=== PATIENT | male | born 1955 | race Caucasian/White ===

== ENCOUNTER 2023-08-27 19:00 | Emergency (ER) | payer MEDICARE ==
[~2023-08-27] VITALS: Ht 180.3 cm; Wt 79.5 kg
[~2023-08-27 19:00] MED LIST: ATOR20TA66 PO; NO HOME MEDS PO
[2023-08-27 19:17] VITALS: TEMP 98.4
[2023-08-27] MEDS: morphine 4 MG/ML inj SYRINge IV ONE (20:05)
[2023-08-27] MEDS: ondansetron/PF 4mg/2ml inj IV ONE (20:11)
[2023-08-27] MEDS ORDERED: iohexol 300mg/ml 100ml inj. ONE (20:35)
[2023-08-27 20:43] LABS: BASOPHILS % (AUTO) 0.5 % (0-1); EOSINOPHILS # (AUTO) 0.1 X10'3 (0-0.9); EOSINOPHILS % (AUTO) 0.7 % (0-6); HEMATOCRIT 41.6 % (42.0-52.0); HEMOGLOBIN 14.2 g/dl (14.0-17.9); LYMPHOCYTES # (AUTO) 1.3 X10'3 (1.1-4.8); LYMPHOCYTES % (AUTO) 14.3 % (21-51); MEAN CORPUSCULAR HEMOGLOBIN 32.2 PG (27.0-31.0); MEAN CORPUSCULAR HGB CONC 34.2 g/dL (33.0-36.5); MEAN CORPUSCULAR VOLUME 94.2 FL (78-98); MEAN PLATELET VOLUME 8.3 FL (7.4-10.4); MONOCYTES # (AUTO) 0.4 X10'3 (0-0.9); MONOCYTES % (AUTO) 4.1 % (2-12); NEUTROPHILS # (AUTO) 7.3 X10'3 (1.8-7.7); NEUTROPHILS % (AUTO) 80.4 % (42-75); PLATELET COUNT 299 X10'3 (140-440); RED BLOOD COUNT 4.42 X10'6 (4.70-6.10); RED CELL DISTRIBUTION WIDTH 13.4 % (11.5-14.5); WHITE BLOOD COUNT 9.1 X10'3 (4.5-11.0)
[2023-08-27 20:58] LABS: ANION GAP 17 (8-16); BLOOD UREA NITROGEN 23 MG/DL (7-18); BUN/CREATININE RATIO 19.7 (10.0-20.0); CALCIUM 9.3 MG/DL (8.5-10.1); CHLORIDE 103 MMOL/L (99-107); CREATININE 1.17 MG/DL (0.60-1.10); GLUCOSE 149 MG/DL (70-104); POTASSIUM 3.8 MMOL/L (3.5-5.1); SODIUM 141 MMOL/L (135-145); TOTAL CARBON DIOXIDE 21.1 MMOL/L (24-32); eCRCL 63 ML/MIN; eGFR 62 ML/MIN
[2023-08-27] MEDS ORDERED: calcium chloride inj. 1,000 MG in normal saline 100ml IV soln 100 ML IV ONE (21:05)
[2023-08-27 22:25] VITALS: BP 138/74; PULSE 74; RESP 18; O2SAT 99
== END 2023-08-27 22:30 | disposition home or self-care (01) ==
LOC: ER 19:01
DX: R10.12 Left upper quadrant pain (principal); Z79.899 Other long term (current) drug therapy
CPT/HCPCS: 36415; 74177; 80048; 85025; 93005; 96374; 96375; 99285; J2270; J2405; Q9967